=== PATIENT | male | born 1955 | race Two or more races ===

== ENCOUNTER 2019-04-11 14:35 | Outpatient (CLI) | payer OTHER | END 2019-04-11 14:40 | disposition home or self-care (01) | LOC: RAD 501 14:35 | DX: M25.561 Pain in right knee (principal); M25.562 Pain in left knee ==

== ENCOUNTER 2019-04-18 07:25 | Outpatient (CLI) | payer OTHER ==
[2019-04-18] MEDS ORDERED: LOSARTAN-HCTZ1 EACH PO (10:17)
== END 2019-04-18 07:45 | disposition home or self-care (01) ==
LOC: LAB 07:25
DX: D64.89 Other specified anemias (principal); E88.89 Other specified metabolic disorders; D68.8 Other specified coagulation defects; N39.0 Urinary tract infection, site not specified; Z22.322 Carrier or suspected carrier of Methicillin resistant Staphylococcus aureus; M17.0 Bilateral primary osteoarthritis of knee; Z76.89 Persons encountering health services in other specified circumstances; M79.651 Pain in right thigh; M79.604 Pain in right leg

== ENCOUNTER 2020-10-24 08:50 | Inpatient (IN) | payer OTHER ==
[~2020-10-24] VITALS: Ht 188 cm; Wt 106.6 kg
[~2020-10-24 08:50] MED LIST: LOSARTAN-HCTZ1 EACH PO
[2020-10-24] MEDS ORDERED: IRBESARTAN-HCT1 EAC1 PO (10:47)
[2020-10-24] MEDS ORDERED: XARELTO20 MG PO (10:48)
[2020-10-24] MEDS ORDERED: CARVEDILOL3.125 MG (10:48)
[2020-10-24] MEDS ORDERED: LIPITOR20 MG PO (10:48)
[2020-10-29] MEDS ORDERED: SERTRALINE HCL50 MG (08:17)
[2020-10-29] MEDS ORDERED: CELECOXIB200 MG (08:17)
[2020-10-29] MEDS ORDERED: DICLOFENAC SOD100 GM (08:17)
[2020-11-02] MEDS ORDERED: TRAMADOL HCL50 MG PO ×2 (12:14)
[2020-11-02] MEDS ORDERED: FUSION PLUS CA1 EACH PO ×2 (12:17)
[2020-11-02] MEDS ORDERED: CELECOXIB200 MG PO ×2 (12:21)
[2020-11-02] MEDS ORDERED: HIBICLENS118 ML TOP ×4 (12:25→12:26)
== END 2020-11-02 13:22 | disposition home or self-care (01) | DRG 470 ==
LOC: SURH 10-28 08:45 → O/R 10-28 12:10 → SURG 10-28 12:10
PROVIDERS: ADMIT Orthopaedic Surgery; ATTEND Orthopaedic Surgery
PROC: 0SRD0J9 Replacement of Left Knee Joint with Synthetic Substitute, Cemented, Open Approach (ICD-10-PCS; principal; 2020-10-28 11:00)
PROC: 4A12X4Z Monitoring of Cardiac Electrical Activity, External Approach (ICD-10-PCS; 2020-10-30)
DX: M17.12 Unilateral primary osteoarthritis, left knee (principal); D62 Acute posthemorrhagic anemia; I48.21 Permanent atrial fibrillation; N39.0 Urinary tract infection, site not specified; Z79.01 Long term (current) use of anticoagulants; Z20.828 Contact with and (suspected) exposure to other viral communicable diseases; I10 Essential (primary) hypertension; I25.10 Atherosclerotic heart disease of native coronary artery without angina pectoris; Z95.5 Presence of coronary angioplasty implant and graft; B95.4 Other streptococcus as the cause of diseases classified elsewhere

== ENCOUNTER → 2020-10-24 09:06 | Outpatient (CLI) | payer OTHER ==
[~2020-10-24 09:06] MED LIST changes: +CARVEDILOL3.125 MG; +CELECOXIB200 MG; +CELECOXIB200 MG PO; +DICLOFENAC SOD100 GM; +FUSION PLUS CA1 EACH PO; +HIBICLENS118 ML TOP; +IRBESARTAN-HCT1 EAC1 PO; +LIPITOR20 MG PO; +SERTRALINE HCL50 MG; +TRAMADOL HCL50 MG PO; +XARELTO20 MG PO
== END | disposition home or self-care (01) ==
LOC: LAB 09:06
DX: R00.2 Palpitations (principal); I11.9 Hypertensive heart disease without heart failure; E11.9 Type 2 diabetes mellitus without complications; E78.2 Mixed hyperlipidemia

== ENCOUNTER 2020-10-24 10:29 | Outpatient (CLI) | payer OTHER ==
[~2020-10-24 10:29] MED LIST changes: -CARVEDILOL3.125 MG; -CELECOXIB200 MG; -CELECOXIB200 MG PO; -DICLOFENAC SOD100 GM; -FUSION PLUS CA1 EACH PO; -HIBICLENS118 ML TOP; -IRBESARTAN-HCT1 EAC1 PO; -LIPITOR20 MG PO; -SERTRALINE HCL50 MG; -TRAMADOL HCL50 MG PO; -XARELTO20 MG PO
[2020-10-24] MEDS ORDERED: IRBESARTAN-HCT1 EAC1 PO (10:47)
[2020-10-24] MEDS ORDERED: LIPITOR20 MG PO (10:48)
[2020-10-24] MEDS ORDERED: CARVEDILOL3.125 MG (10:48)
[2020-10-24] MEDS ORDERED: XARELTO20 MG PO (10:48)
== END 2020-10-24 15:00 | disposition home or self-care (01) ==
LOC: MRI 10:29
PROVIDERS: ATTEND Orthopaedic Surgery
DX: G93.89 Other specified disorders of brain (principal)
CPT/HCPCS: 70551

== ENCOUNTER 2021-05-21 07:08 | Outpatient (CLI) | payer OTHER ==
[~2021-05-21 07:08] MED LIST changes: +CARVEDILOL3.125 MG; +CELECOXIB200 MG; +CELECOXIB200 MG PO; +DICLOFENAC SOD100 GM; +FUSION PLUS CA1 EACH PO; +HIBICLENS118 ML TOP; +IRBESARTAN-HCT1 EAC1 PO; +LIPITOR20 MG PO; +SERTRALINE HCL50 MG; +TRAMADOL HCL50 MG PO; +XARELTO20 MG PO
[2021-05-21] MEDS ORDERED: ZESTRIL20 MG PO (12:18)
== END 2021-05-21 07:12 | disposition home or self-care (01) ==
LOC: LAB 07:08
PROVIDERS: ATTEND Orthopaedic Surgery
DX: D64.89 Other specified anemias (principal); E88.89 Other specified metabolic disorders; D68.8 Other specified coagulation defects; N39.0 Urinary tract infection, site not specified; Z22.322 Carrier or suspected carrier of Methicillin resistant Staphylococcus aureus

== ENCOUNTER 2021-05-21 10:30 | Inpatient (IN) | payer OTHER ==
[~2021-05-21] VITALS: Ht 188 cm; Wt 106.6 kg
[2021-05-21] MEDS ORDERED: ZESTRIL20 MG PO (12:18)
== END 2021-05-29 17:28 | disposition home or self-care (01) | DRG 470 ==
LOC: SURH 05-25 10:30 → O/R 05-25 10:40 → SURG 05-25 10:40 → SURH 05-25 14:00 → SURG 05-25 18:42
PROVIDERS: ADMIT Orthopaedic Surgery; ATTEND Orthopaedic Surgery
PROC: 0SRC069 Replacement of Right Knee Joint with Oxidized Zirconium on Polyethylene Synthetic Substitute, Cemented, Open Approach (ICD-10-PCS; principal; 2021-05-25 14:00)
PROC: 4A12X4Z Monitoring of Cardiac Electrical Activity, External Approach (ICD-10-PCS; 2021-05-26)
PROC: 0JCP0ZZ Extirpation of Matter from Left Lower Leg Subcutaneous Tissue and Fascia, Open Approach (ICD-10-PCS; 2021-05-29)
DX: M17.11 Unilateral primary osteoarthritis, right knee (principal); I48.20 Chronic atrial fibrillation, unspecified; I25.10 Atherosclerotic heart disease of native coronary artery without angina pectoris; Z95.5 Presence of coronary angioplasty implant and graft; Z79.01 Long term (current) use of anticoagulants; S70.352A Superficial foreign body, left thigh, initial encounter; X58.XXXA Exposure to other specified factors, initial encounter

== ENCOUNTER → 2021-07-21 08:20 | Outpatient (CLI) | payer OTHER ==
[~2021-07-21 08:20] MED LIST changes: +ZESTRIL20 MG PO
== END | disposition home or self-care (01) ==
LOC: RAD 08:20 → LAB 08:20
PROVIDERS: ATTEND Orthopaedic Surgery
DX: M51.37 Other intervertebral disc degeneration, lumbosacral region (principal); M54.5 Low back pain; D64.89 Other specified anemias; M06.4 Inflammatory polyarthropathy